=== PATIENT | female | born 2005 | race Caucasian/White ===

== ENCOUNTER 2023-08-15 07:01 | Emergency (ER) | payer OTHER ==
[2023-08-15 07:41] VITALS: BP 114/63; O2SAT 99
--- NOTE | 2023-08-15 07:45 | ED Physician Documentation ---
PD HPI UPPER EXT INJURY - Stated complaint Stated Complaint: DOG BITE - Chief complaint Chief Complaint: Trauma Ext - History obtained from History obtained from: Patient - History of Present Illness Location: Right, Finger (index) Type of injury: Other (dog bite from family pet. Had two puncture wounds and cleaned them out. Has now redness and swelling today.) Where injury occurred: Home Timing - onset: Yesterday Timing - details: Gradual onset, Still present Worsened by: Moving, Palpating Associated symptoms: Swelling, Discolored (redness). No: Weakness, Numbness Similar symptoms before: Has not had sx before Review of Systems Constitutional: denies: Fever, Chills Neurologic: denies: Focal weakness, Numbness PD PAST MEDICAL HISTORY - Past Medical History Past Medical History: No Cardiovascular: None Endocrine/Autoimmune: None - Past Surgical History Past Surgical History: No - Present Medications Home Medications: Ambulatory Orders Medication Instructions Recorded Confirmed Amox/Clav 875/125 [Augmentin] 1 each PO Q12H #14 tablet 08/15/23 Ibuprofen [Motrin] 600 mg PO TID PRN #25 tab 08/15/23 - Allergies Allergies/Adverse Reactions: Allergies Allergy/AdvReac Type Severity Reaction Status Date / Time No Known Drug Allergies Allergy Verified 08/15/23 08:27 - Social History Does the pt smoke?: No Smoking Status: Former smoker Does the pt drink ETOH?: Yes Does the pt have substance abuse?: No - Immunizations Immunizations are current?: Yes PD ED PE NORMAL - Vitals Vital signs reviewed: Yes - General General: Alert and oriented X 3, No acute distress, Well developed/nourished - Derm Derm: Warm and dry. No: Normal color - Extremities Extremities: Other (right index finger with 2 puncture wounds dorsal and ppalmar at proximal phalanx. There is redness and swelling, tender. Able to flex and extend slowly due to swelling, but still can do it. ) - Neuro Neuro: No motor deficit, No sensory deficit Results - Vitals Vitals: Vital Signs - 24 hr 08/15/23 07:28 Temperature 37.1 C Heart Rate 73 Respiratory 18 Rate Blood Pressure 114/63 O2 Saturation 99 Oxygen O2 Source Room air PD Medical Decision Making - ED course Complexity details: considered differential, d/w patient ED course: dog bite wound family pet that is acting okay per report. finger has developed significant redness and edema overnight, so consider pasteurella in addition to staph. Departure - Departure Disposition: 01 Home, Self Care Clinical Impression: Dog bite of finger, Wound infection Condition: Stable Record reviewed to determine appropriate education?: Yes Instructions: ED Infec Skin Cellulitis Follow-Up: [facility] [Provider Group] Prescriptions: Amox/Clav 875/125 [Augmentin] 1 each PO Q12H #14 tablet Ibuprofen [Motrin] 600 mg PO TID PRN #25 tab PRN Reason: Pain Comments: Augmentin antibiotic twice daily for the infection. You can use ibuprofen 2-3 times daily for inflammation and pain. Add Tylenol every 4-6 hours if needed for pain. Soak the finger periodically through the day oral warm moist compresses to promote good blood flow. Recheck if not improved well over the next day or 2 and essentially resolved over 2 or 3 days. 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 Return if you have more general symptoms and in particular fever chills or any pain up to the forearm as that would be concern for extension of the infection through the tendons or muscles. At this point it seems to be skin infection and just under the skin. I sent your prescriptions to the [facility]. Forms: PCP List, Activity restrictions Discharge Date/Time: 08/15/23 08:31
[2023-08-15] MEDS ORDERED: AMOX/CLAV 875 MG/125 MG TABLET PO STA (08:01)
[2023-08-15] MEDS ORDERED: IBUPROFEN 600 MG TABLET PO STA (08:01)
== END 2023-08-15 08:31 | disposition home or self-care (01) ==
LOC: ED 07:01
DX: S61.250A Open bite of right index finger without damage to nail, initial encounter (principal); L08.9 Local infection of the skin and subcutaneous tissue, unspecified; W54.0XXA Bitten by dog, initial encounter; Z87.891 Personal history of nicotine dependence
CPT/HCPCS: 99282; 99283; A9270

== ENCOUNTER 2024-02-24 06:57 | Outpatient (CLI) | payer OTHER ==
--- NOTE | 2024-02-24 09:57 | Ultrasound Report ---
PROCEDURE: Abdomen Limited INDICATIONS: HEPATOMEGALY, AUB TECHNIQUE: Real-time focused scanning was performed of the abdomen, with image documentation. COMPARISONS: None. FINDINGS: Liver: Liver is normal in size and homogeneous in echotexture. Gallbladder: No gallstones, sludge, wall thickening or pericholecystic edema. Biliary ducts: Intrahepatic bile ducts are non-dilated. Extrahepatic bile duct caliber measures 3 m m. Normal is 6-7 mm or less in diameter, or 10 mm or less post-cholecystectomy. Pancreas: Visualized portions of the pancreas are sonographically normal. Right kidney: Normal in size and echotexture. Right kidney measures 10.8 cm long. No hydronephrosis or nephrolithiasis. No solid masses. No complex renal cystic lesions which require follow-up. IVC: Intrahepatic inferior vena cava is patent. Miscellaneous: No free abdominal fluid. IMPRESSION: The liver is normal in size. Normal right upper quadrant ultrasound. Reviewed by: Alejo Solorio MD on 02/24/2024 9:55 AM PDT Approved by: Alejo Solorio MD on 02/24/2024 9:55 AM PDT Station ID: [id number]
--- NOTE | 2024-02-24 10:04 | Ultrasound Report ---
PROCEDURE: Pelvic w/Transvaginal INDICATIONS: HEPATOMEGALY, AUB TECHNIQUE: Real-time scanning was performed of the pelvic organs, with image documentation. Additional endovagi nal scanning was necessary due to incomplete visualization of the adnexal and endometrial structures by transabdominal scanning. COMPARISON: None. FINDINGS: Uterus: Uterus is anteverted and normal in size at 7.0 x 3.2 x 4.3 cm. The myometrium is heterogene ous. The endometrium measures 4 mm in combined thickness. Intrauterine device in appropriate positi on. Ovaries: The right ovary measures 3.0 x 2.1 x 2.0 cm, with a calculated ovarian volume of 6.8 cc. T he left ovary measures 2.9 x 1.8 x 1.8 cm, with a calculated ovarian volume of 4.7 cc. Left ovarian c orpus luteal cyst measuring 1.4 x 1.6 x 1.3 cm. The ovaries have a normal sonographic appearance. Le ss than 12 follicles can be seen in each ovary. No adnexal masses are seen. No cystic lesions measur ing greater than 3 cm. Other: Small free fluid, likely physiologic.. IMPRESSION: 1.No cause for patient's symptoms identified. The endometrium is normal in thickness. Intrauterine de vice in appropriate position. 2.Left ovarian corpus luteal cyst. 3.Small free fluid, likely physiologic. Reviewed by: Alejo Solorio MD on 02/24/2024 10:03 AM PDT Approved by: Alejo Solorio MD on 02/24/2024 10:03 AM PDT Station ID: [id number]
== END 2024-02-24 06:58 | disposition home or self-care (01) ==
LOC: DI 06:57
PROVIDERS: ATTEND Nurse Practitioner Family
DX: R16.0 Hepatomegaly, not elsewhere classified (principal); N83.12 Corpus luteum cyst of left ovary; Z97.5 Presence of (intrauterine) contraceptive device; N93.9 Abnormal uterine and vaginal bleeding, unspecified